=== PATIENT | female | born 2000 | race Caucasian/White ===

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

== ENCOUNTER 2022-10-06 20:48 | Emergency (ER) | payer OTHER ==
[2022-10-06 20:53] VITALS: TEMP 98.1
[2022-10-06] MEDS ORDERED: SODIUM CHLORIDE 0.9% 1,000 ML IV ONE (21:16)
--- NOTE | 2022-10-06 22:04 | US ---
EXAMINATION TYPE: US pelvis complete transvag plus Doppler DATE OF EXAM: 10/06/2022 COMPARISON: CT today CLINICAL INDICATION: Female, 22 years old with history of ovarian torsion; RLQ pain TECHNIQUE: Transabdominal sonographic images of the pelvis were acquired. Transvaginal sonographic images were medically necessary to better assess the following anatomy: ovaries Date of LMP: Unknown FINDINGS: EXAM MEASUREMENTS: Uterus: 6.7 x 4.8 x 3.4 cm Endometrial Stripe: 0.56 cm Right Ovary: Not seen Left Ovary: 3.6 x 2.8 x 2.4 cm for a volume of 12.1 mL. 1. Uterus: Anteverted and otherwise wnl 2. Endometrium: wnl 3. Right Ovary: Not seen 4. Left Ovary: There is normal follicular change within the left ovary. Within the left adnexa just adjacent, there is a cystic appearing structure measuring 5.7 x 4.2 x 3.6cm. Possibly attached to or abutting the left ovary. Spectral, color and waveform doppler imaging shows good arterial and venous flow within the ovaries ; there is no evidence for ovarian torsion. 5. Bilateral Adnexa: Cystic structure adjacent to lt ovary 6. Posterior cul-de-sac: Trace amount of fluid seen Water Commissioner notes: Right ovary was not visualized. Pt was having pain when going over to right side d uring transabdominal and transvaginal. IMPRESSION: 1. Normal-appearing left ovary with follicular change. 2. However, also within the left adnexa, there is a 5.7 x 4.2 cm cystic structure which is either att ached to or abuts the left ovary. Consider a paraovarian cyst. No ovarian parenchyma is seen associat ed with this cyst to clearly indicate that this is the right ovary located within the left adnexa. Re commend follow-up ultrasound in 6-8 weeks to reassess. Further clinical management of patient's right lower quadrant abdominal pain. 3. We are again unable to visualize the right ovary. Nonvisualization of the right ovary argues again st ovarian torsion. 4. Trace cul-de-sac free fluid probably physiologic.
[2022-10-06 22:09] LABS: Appearance,Urine Clear (Clear); Bilirubin,Urine Negative (Negative); Blood,Urine Negative (Negative); Color,Urine Light Yellow; Glucose,Urine (UA) Negative (Negative); Ketones,Urine Negative (Negative); Leukocyte Esterase,Urine Negative (Negative); Nitrite,Urine Negative (Negative); Protein,Urine Negative (Negative); Urobilinogen,Urine <2.0 mg/dL (<2.0)
[2022-10-06 22:12] LABS: Specific Gravity,Urine 1.046 (1.001-1.035)
--- NOTE | 2022-10-06 23:23 | ED ---
General Adult HPI - General Chief complaint: Abdominal Pain Stated complaint: Abnormal Lab Time Seen by Provider: 10/06/22 21:11 Source: patient, RN notes reviewed Mode of arrival: ambulatory Limitations: no limitations - History of Present Illness Initial comments: 22-year-old female T0 P0 presents the emergency department with a chief complaint of right lower quadrant abdominal pain. She reports that the pain started 4 days ago. She reports as a constant sharp pain that is worse when she changes position. She has not taken anything for her symptoms. She denies any coming symptoms of fever, chills, shortness of breath, flank pain, dysuria, hematuria, vaginal bleeding, vaginal discharge, back pain. She was seen at her PCP prior to arrival who did lab work and CT which was unremarkable however he recommended she be evaluated in the ED to receive a pelvic ultrasound. - Related Data Allergies Allergy/AdvReac Type Severity Reaction Status Date / Time No Known Allergies Allergy Verified 10/06/22 20:53 Review of Systems ROS Statement: Those systems with pertinent positive or pertinent negative responses have been documented in the HPI. ROS Other: All systems not noted in ROS Statement are negative. Past Medical History Past Medical History: No Reported History History of Any Multi-Drug Resistant Organisms: None Reported Past Surgical History: Adenoidectomy, Tonsillectomy Past Psychological History: Bipolar Smoking Status: Never smoker Past Alcohol Use History: None Reported Past Drug Use History: None Reported General Exam - General Exam Comments Initial Comments: General: Alert, in no acute distress Head: atraumatic normocephalic. Eyes PERRL, EOMI intact, mucous membranes moist Respiratory: Lungs clear to auscultation bilaterally Cardiovascular: Heart rate regular rate and rhythm, mild tenderness to right lower quadrant Abdominal: Soft without guarding or rebound Extremities: Normal inspection with full range of motion and normal capillary refill Neuroogic: alert and oriented 3, CN II-XII intact, able to ambulate with steady gait Skin: warm dry and intact with normal color Limitations: no limitations Course Vital Signs 10/06/22 20:50 Temperature 98.1 F Pulse Rate 109 H Respiratory 18 Rate Blood Pressure 123/84 O2 Sat by Pulse 97 Oximetry Medical Decision Making - Medical Decision Making Was pt. sent in by a medical professional or institution (, PA, WASH OIL COOLER OPERATOR, urgent care, hospital, or fci...) When possible be specific @ -[No] Did you speak to anyone other than the patient for history (EMS, parent, family, police, friend...)? What history was obtained from this source @ -[No] Did you review nursing and triage notes (agree or disagree)? Why? @ -[I reviewed and agree with nursing and triage notes] Were old charts reviewed (outside hosp., previous admission, EMS record, old EKG, old radiological studies, urgent care reports/EKG's, fci records)? Report findings @ -[No old charts were reviewed] Differential Diagnosis (chest pain, altered mental status, abdominal pain women, abdominal pain men, vaginal bleeding, weakness, fever, dyspnea, syncope, headache, dizziness, GI bleed, back pain, seizure, CVA, palpatations, mental health, musculoskeletal)? @ -[not applicable] EKG interpreted by me (3pts min.). @ -[As above] X-rays interpreted by me (1pt min.). @ -[None done] CT interpreted by me (1pt min.). @ -[None done] U/S interpreted by me (1pt. min.). @ -[None done] What testing was considered but not performed or refused? (CT, X-rays, U/S, labs)? Why? @ -[None] What meds were considered but not given or refused? Why? @ -[None] Did you discuss the management of the patient with other professionals (professionals i.e. , PA, WASH OIL COOLER OPERATOR, lab, RT, psych nurse, social group worker, watch repairer, teacher, business services officer, case packer)? Give summary @ -Case discussed with Dr. Cabrera, OB on-call who recommends the patient have a follow-up ultrasound in 16 weeks Was smoking cessation discussed for >3mins.? @ -[No] Was critical care preformed (if so, how long)? @ -[No] Were there social determinants of health that impacted care today? How? (Homelessness, low income, unemployed, alcoholism, drug addiction, transportation, low edu. Level, literacy, decrease access to med. care, usp, rehab)? @ -[No] Was there de-escalation of care discussed even if they declined (Discuss DNR or withdrawal of care, Hospice)? DNR status @ -[No] What co-morbidities impacted this encounter? (DM, HTN, Smoking, COPD, CAD, Cancer, CVA, ARF, Chemo, Hep., AIDS, mental health diagnosis, sleep apnea, morbid obesity)? @ -[None] Was patient admitted / discharged? Hospital course, mention meds given and route, prescriptions, significant lab abnormalities, going to OR and other pertinent info. @ -Discharged. This is a 22-year-old female who presents the emergency department with abdominal pain. Patient had a thorough history and physical exam performed on the ED. Physical exam reveals heart rate regular rate and rhythm, lungs clear to auscultation bilaterally abdomen is soft with Mild RLQ tenderness. McBurney's point tenderness negative, negative Rovsing. Patient had imaging which reveals: Pelvic ultrasound reveals no right ovary seen the left ovary reveals normal follicular change with paraovarian cyst no ovarian parenchyma seen associated with assistance to clearly indicate that this is the right ovary is located within the left adnexa recommend follow-up ultrasound in 6-8 weeks for reassessment I discussed the results in detail with the patient verbalized understanding. She was discharged in stable condition with return precautions discussed. She was discharged in stable condition. Case discussed with Dr. Cortés [facility] who agrees with plan of care. Undiagnosed new problem with uncertain prognosis? @ -[No] Drug Therapy requiring intensive monitoring for toxicity (Heparin, Nitro, Insulin, Cardizem)? @ -[No] Were any procedures done? @ -[No] Diagnosis/symptom? @ -Abdominal pain Acute, or Chronic, or Acute on Chronic? @ -acute Uncomplicated (without systemic symptoms) or Complicated (systemic symptoms)? @ -uncomplicated Side effects of treatment? @ -[No] Exacerbation, Progression, or Severe Exacerbation? @ -[No] Poses a threat to life or bodily function? How? (Chest pain, [place], ME, pneumonia, PE, COPD, DKA, ARF, appy, cholecystitis, CVA, Diverticulitis, Homicidal, Suicidal, threat to staff... and all critical care pts) @ -low likelihood - Lab Data Lab Results 10/06/22 10/06/22 Range/Units 21:58 21:58 Urine Color Light Yellow Urine Appearance Clear (Clear) Urine pH 6.0 (5.0-8.0) Ur Specific [place] 1.046 H (1.001-1.035) Urine Protein Negative (Negative) Urine Glucose (UA) Negative (Negative) Urine Ketones Negative (Negative) Urine Blood Negative (Negative) Urine Nitrite Negative (Negative) Urine Bilirubin Negative (Negative) Urine Urobilinogen <2.0 (<2.0) mg/dL Ur Leukocyte Esterase Negative (Negative) Urine HCG, Qual Not Detected (Not Detectd) Disposition Clinical Impression: Abdominal pain Disposition: HOME SELF-CARE Condition: Stable Additional Instructions: These return to the nearest emergency department symptoms worsen or persist Is patient prescribed a controlled substance at d/c from ED?: No Referrals: Damian Pritchett MD [Primary Care Provider] - 1-2 days Cash Cabrera MD [STAFF PHYSICIAN] - 1-2 days Windy Severino MD [STAFF PHYSICIAN] - 1-2 days Cynhtia Winters DO [Doctor of Osteopathic Medicine] - 1-2 days Time of Disposition: 23:22
[2022-10-07 01:06] VITALS: BP 114/78; PULSE 98; RESP 16
== END 2022-10-07 | disposition home or self-care (01) ==
LOC: EC 20:48
DX: R10.31 Right lower quadrant pain (principal)
CPT/HCPCS: 76830; 76856; 81003; 81025; 93976; 96360; 99284

== ENCOUNTER → 2022-12-31 | Outpatient (CLI) | payer OTHER ==
--- NOTE | 2022-12-31 21:43 | US ---
EXAMINATION TYPE: US pelvis complete transvag DATE OF EXAM: 12/31/2022 COMPARISON: US 2022, CT 10/06/2022r CLINICAL INDICATION: Female, 22 years old with history of N83.209 UNSPECIFIED OVARIAN CYST, UNSPECIFI ED SIDE; Follow up TECHNIQUE: Transabdominal sonographic images of the pelvis were acquired. Transvaginal sonographic images were medically necessary to better assess the following anatomy: ovaries and endometrium Date of LMP: Patient unsure EXAM MEASUREMENTS: Uterus: 6.7 x 3.2 x 4.0 cm Endometrial Stripe: 0.4 cm Right Ovary: not seen Left Ovary: 3.2 x 2.2 x 2.6 cm 1. Uterus: anteverted 2. Endometrium: appears wnl 3. Right Ovary: not seen 4. Left Ovary: multiple follicles 5. Bilateral Adnexa: left adnexa - 5.0 x 3.4 x 3.1cm cystic structure 6. Posterior cul-de-sac: wnl IMPRESSION: 1. Left adnexal cystic structure measuring 5.0 cm which appears smaller compared to prior when it me asured 5.7 cm on ultrasound however measured up to 5.[address] imaging from that same day as the yina or ultrasound. However could be due to secondary to technique. If this is ovarian in etiology. Predis poses the patient to ovarian torsion. 2. Endometrium within normal limits for thickness.
== END | disposition home or self-care (01) ==
LOC: RADUSWWP 16:11
PROVIDERS: ATTEND Internal Medicine
DX: N83.202 Unspecified ovarian cyst, left side (principal)
CPT/HCPCS: 76830; 76856

== ENCOUNTER → 2024-11-11 | Outpatient (CLI) | payer MEDICARE, OTHER ==
[2024-11-11 19:01] LABS: Basophils # (A) 0.03 X 10*3/uL (0.00-0.10); Basophils % (A) 0.3 %; Eosinophils % (A) 1.1 %; HGB 14.1 g/dL (12.0-15.0); Lymphocytes # (A) 3.42 X 10*3/uL (0.90-5.00); MCHC 32.8 g/dL (32.0-37.0); MCV 88.5 FL (80.0-97.0); Monocytes # (A) 0.53 X 10*3/uL (0.20-1.00); Monocytes % (A) 5.6 %; NRBC Per 100 WBC 0 X 10*3/uL (0.00-0.01); Neutrophils % (A) 56.8 %; Platelet Count 413 X 10*3/uL (140-440); RBC 4.86 X 10*6/uL (4.10-5.20); RDW 13.2 % (11.5-14.5)
[2024-11-11 19:40] LABS: ALT 58 U/L (8-44); AST 26 U/L (13-35); Albumin 4.4 g/dL (3.8-4.9); Alkaline Phosphatase 59 U/L (41-126); Blood Urea Nitrogen 8.4 mg/dL (9.0-27.0); Calcium 9.5 mg/dL (8.7-10.3); Carbon Dioxide 22.9 mmol/L (21.6-31.8); Chloride 105 mmol/L (96-109); Chol/HDL Ratio 6.81 Ratio; Globulin 2.2 g/dL (1.6-3.3); Glucose 82 mg/dL (70-110); LDL Cholesterol,Calculated 176.3 mg/dL (0.0-131.0); Potassium 4.3 mmol/L (3.5-5.5); Sodium 139 mmol/L (135-145); Total Bilirubin 0.4 mg/dL (0.3-1.2); Total Protein 6.6 g/dL (6.2-8.2)
== END | disposition home or self-care (01) ==
LOC: LABWHC1 13:53
PROVIDERS: ATTEND Internal Medicine
DX: E78.5 Hyperlipidemia, unspecified (principal); E55.9 Vitamin D deficiency, unspecified; R10.2 Pelvic and perineal pain
CPT/HCPCS: 36415; 80053; 80061; 82306; 84443; 85025